=== PATIENT | female | born 1975 | race Two or more races ===

== ENCOUNTER 2024-07-22 17:35 | Inpatient (IN) | payer MEDICAID ==
[~2024-07-22] VITALS: Ht 152.4 cm; Wt 63.6 kg
[2024-07-22 18:42] LABS: COVID AG,FIA SOURCE NASAL SWAB
[2024-07-22 18:43] LABS: BASOPHILS % (AUTO) 0.3 % (0.0-2.0); EOSINOPHILS % (AUTO) 1.1 % (1.0-6.0); HEMATOCRIT 37.7 % (36-46); HEMOGLOBIN 12.5 g/dL (12.0-16.0); LYMPHOCYTES # (AUTO) 1.7 K/uL (1.0-4.8); LYMPHOCYTES % (AUTO) 34.3 % (22.0-44.0); MEAN CORPUSCULAR HEMOGLOBIN 32.3 pg (26.0-34.0); MEAN CORPUSCULAR HGB CONC 33.1 G/dL (31.0-37.0); MEAN CORPUSCULAR VOLUME 97 fL (80-100); MONOCYTES # (AUTO) 0.5 K/uL (0.1-1.0); MONOCYTES % (AUTO) 10.5 % (2.0-9.0); NEUTROPHILS # (AUTO) 2.6 K/uL (1.8-7.7); NEUTROPHILS % (AUTO) 53.8 % (40.0-70.0); PLATELET COUNT (AUTO) 391 K/uL (150-450); RED BLOOD CELL COUNT(AUTO) 3.87 MIL/uL (4.00-5.20); RED CELL DISTRIBUTION WIDTH 14.5 % (11.5-14.5); WHITE BLOOD COUNT (AUTO) 4.9 K/uL (4.5-11.0)
[2024-07-22 18:52] LABS: ANION GAP 12 mmol/L (8-16); CALCIUM, TOTAL 8.7 mg/dL (8.8-10.5); CARBON DIOXIDE 28 mmol/L (22-29); CHLORIDE 103 mmol/L (98-107); CREATININE 0.89 mg/dL (0.60-1.30); GLOMERULAR FILTR. RATE CALC > 60 mL/min (>60); GLUCOSE,RANDOM 91 mg/dL (70-110); POTASSIUM 3.6 mmol/L (3.5-5.1); SODIUM SERUM 143 mmol/L (136-145); UREA NITROGEN, BLOOD 15 mg/dL (7-18)
[2024-07-22 19:00] LABS: ALCOHOL, BLOOD (SERUM) < 3 mg/dL (0-10)
[2024-07-22 19:01] LABS: SARS-COV2 (COVID) ANTIGEN,FIA Negative (Negative)
[2024-07-22] MEDS ORDERED: MAGNESIUM HYDROXIDE SUSPENSION 30 ML UDCUP PO PRN (20:00)
[2024-07-22] MEDS ORDERED: LOPERAMIDE HCL 2 MG CAPSULE PO PRN (20:00)
[2024-07-22] MEDS ORDERED: ACETAMINOPHEN 325 MG TABLET PO PRN (20:00)
[2024-07-22] MEDS ORDERED: MAG HYDROX/ALUMINUM HYD/SIMETH ES 30 ML SUSPENSION UDCUP PO PRN (20:00)
[2024-07-22] MEDS ORDERED: HALOPERIDOL 5 MG TABLET PO PRN (20:00)
[2024-07-22 22:50] VITALS: O2SAT 99
[2024-07-23 00:35] VITALS: BP 126/74; PULSE 101; RESP 18; TEMP 96; O2SAT 96
[2024-07-23 08:20] VITALS: BP 126/88; PULSE 98; RESP 16; TEMP 98.1; O2SAT 98
[2024-07-23] MEDS ORDERED: ONDANSETRON 4 MG TABLET PO PRN (15:00)
[2024-07-23] MEDS ORDERED: ALBUTEROL SULFATE HFA 90 MCG/PUFF 8 GM INHALER IH PRN (15:00)
[2024-07-23] MEDS ORDERED: IBUPROFEN 400 MG TABLET PO PRN (15:00)
[2024-07-23] MEDS ORDERED: LOPERAMIDE HCL 2 MG CAPSULE PO PRN (15:00)
[2024-07-23] MEDS ORDERED: PETROLATUM,WHITE 28 GM JELLY TP PRN (15:00)
[2024-07-23] MEDS ORDERED: DOCUSATE SODIUM 100 MG CAPSULE PO PRN (15:00)
[2024-07-23] MEDS ORDERED: NICOTINE 14 MG/24 HOUR PATCH TD PRN (15:00)
[2024-07-23] MEDS ORDERED: MAG HYDROX/ALUMINUM HYD/SIMETH ES 30 ML SUSPENSION UDCUP PO PRN (15:00)
[2024-07-23] MEDS ORDERED: ACETAMINOPHEN 325 MG TABLET PO PRN (15:00)
[2024-07-23] MEDS ORDERED: CloNIDine HCL 0.1 MG TABLET PO PRN (15:00)
[2024-07-23] MEDS ORDERED: GuaiFENesin/D-METHORPHAN [SUGAR-FREE] 200-20MG/10 ML SYRUP UDCUP PO PRN (15:00)
[2024-07-23] MEDS: OLANZapine 7.5 MG TABLET PO SCH (20:40)
[2024-07-23 21:20] VITALS: BP 132/88; PULSE 79; RESP 16; TEMP 97.7; O2SAT 98
[2024-07-23] MEDS: TraZODone HCL 100 MG TABLET PO PRN (21:55)
[2024-07-24 08:13] VITALS: BP 120/81; PULSE 79; RESP 16; TEMP 98.1; O2SAT 100
[2024-07-24 09:31] LABS: THYROID STIMULATING HORMONE 0.7 uIU/mL (0.36-3.74)
[2024-07-24] MEDS: FluvoxaMINE MALEATE 50 MG TABLET PO SCH (10:12)
[2024-07-24 14:05] LABS: CHOL/HDL RATIO 3.3 (3.9-5.7)
[2024-07-24 14:32] LABS: HEMOGLOBIN A1C 5.7 % (3.8-5.6)
[2024-07-24 20:20] VITALS: BP 118/78; PULSE 75; RESP 16; TEMP 97.9; O2SAT 99
[2024-07-25 08:44] VITALS: BP 121/77; PULSE 65; RESP 18; TEMP 97.1; O2SAT 100
[2024-07-25 20:25] VITALS: BP 123/74; PULSE 123; RESP 16; TEMP 97.3; O2SAT 100
[2024-07-26 08:46] VITALS: BP 119/77; PULSE 72; RESP 19; TEMP 97.7; O2SAT 98
[2024-07-26 20:17] VITALS: BP 119/79; PULSE 71; RESP 18; TEMP 97.4; O2SAT 99
[2024-07-27 08:51] VITALS: BP 131/76; PULSE 69; RESP 16; TEMP 97.2; O2SAT 100
[2024-07-27 21:38] VITALS: BP 128/73; PULSE 70; RESP 17; TEMP 97.5; O2SAT 99
[2024-07-27] MEDS: MAGNESIUM HYDROXIDE SUSPENSION 30 ML UDCUP PO PRN (22:47)
[2024-07-28 08:39] VITALS: BP 110/72; PULSE 98; RESP 16; TEMP 97.3; O2SAT 97
[2024-07-28 20:40] VITALS: BP 119/60; PULSE 78; RESP 17; TEMP 98.1; O2SAT 100
[2024-07-29 08:00] VITALS: BP 116/67; PULSE 86; RESP 18; TEMP 96.8; O2SAT 100
[2024-07-29 21:38] VITALS: BP 119/75; PULSE 81; RESP 17; TEMP 97.4; O2SAT 99
[2024-07-30 09:08] VITALS: BP 107/61; PULSE 96; RESP 16; TEMP 97.7; O2SAT 100
[2024-07-30 20:58] VITALS: BP 123/81; PULSE 78; RESP 18; TEMP 96.8; O2SAT 98
[2024-07-31 08:45] VITALS: BP 108/63; PULSE 95; RESP 16; TEMP 98; O2SAT 99
[2024-07-31 09:39] LABS: APPEARANCE,URINE HAZY (CLEAR); BILIRUBIN,URINE NEGATIVE (NEGATIVE); COLOR,URINE YELLOW (YELLOW); GLUCOSE, URINE (UA) NEGATIVE (NEGATIVE); KETONES,URINE 40-60 mg/dL (NEGATIVE); LEUKOCYTE ESTERASE ,URINE SMALL (NEGATIVE); NITRATE,URINE NEGATIVE (NEGATIVE); OCCULT BLOOD,URINE NEGATIVE (NEGATIVE); PH,URINE 5.5 (5.0-8.0); PH,URINE DRUG SCREEN 5.5 (5.0-8.0); PROTEIN,URINE 30-70 mg/dL (NEGATIVE); UROBILINOGEN,URINE <=1.0 mg/dL (<=1.0)
[2024-07-31 09:44] LABS: ALCOHOL, URINE DRUG SCREEN NEGATIVE (NEGATIVE); AMPHET/METH SCREEN,URINE NEGATIVE (NEGATIVE); BARBITURATE SCREEN, URINE NEGATIVE (NEGATIVE); BENZODIAZEPINES SCREEN,URINE NEGATIVE (NEGATIVE); CANNABINOID SCREEN,URINE NEGATIVE (NEGATIVE); COCAINE SCREEN,URINE NEGATIVE (NEGATIVE); METHADONE SCREEN, URINE NEGATIVE (NEGATIVE); OPIATE SCREEN,URINE NEGATIVE (NEGATIVE); PHENCYCLIDINE SCREEN,URINE NEGATIVE (NEGATIVE)
[2024-07-31 11:10] LABS: BACTERIA,URINE Few /HPF (None Seen); RBC,URINE None Seen /HPF (0-2); SQUAMOUS EPITHELIAL CELL,UR Few /LPF (None Seen)
[2024-07-31 21:34] VITALS: BP 107/70; PULSE 97; RESP 16; TEMP 98.3; O2SAT 97
[2024-08-01 09:13] VITALS: BP 112/74; PULSE 84; RESP 17; TEMP 97.5; O2SAT 97
[2024-08-01 20:23] VITALS: BP 115/68; PULSE 86; RESP 16; TEMP 97.5; O2SAT 98
[2024-08-02 08:32] VITALS: BP 115/74; PULSE 89; RESP 16; TEMP 97.8; O2SAT 98
[2024-08-02 20:39] VITALS: BP 120/77; PULSE 88; RESP 18; TEMP 97.8; O2SAT 97
[2024-08-03 08:53] VITALS: BP 105/66; PULSE 105; RESP 18; TEMP 98.5; O2SAT 98
[2024-08-03 20:35] VITALS: BP 125/82; PULSE 92; RESP 18; TEMP 97.6; O2SAT 100
[2024-08-04] MEDS: ZOLPIDEM TARTRATE 10 MG TABLET PO PRN (01:03)
[2024-08-04 09:11] VITALS: BP 105/68; PULSE 79; RESP 19; TEMP 98; O2SAT 97
[2024-08-04] MEDS: MetFORMIN HCL 500 MG TABLET PO SCH (13:09)
[2024-08-04 20:00] VITALS: BP 115/80; PULSE 89; RESP 16; TEMP 97.8; O2SAT 98
[2024-08-05 08:37] VITALS: BP 115/77; PULSE 85; RESP 18; TEMP 97.1; O2SAT 97
[2024-08-05 20:43] VITALS: BP 108/72; PULSE 84; RESP 18; TEMP 97.3; O2SAT 96
[2024-08-06 08:37] VITALS: BP 108/71; PULSE 92; RESP 16; TEMP 97.9; O2SAT 97
[2024-08-06 21:04] VITALS: BP 101/68; PULSE 88; RESP 16; TEMP 97; O2SAT 97
[2024-08-07 08:22] VITALS: BP 107/67; PULSE 63; RESP 16; TEMP 96.8; O2SAT 95
[2024-08-07 22:18] VITALS: BP 94/63; PULSE 84; RESP 18; TEMP 97.5; O2SAT 98
[2024-08-08] MEDS: LORazepam 2 MG TABLET PO PRN (00:06)
[2024-08-08 08:39] VITALS: BP 116/65; PULSE 76; RESP 16; TEMP 97.9; O2SAT 98
[2024-08-08] MEDS: CLOBETASOL 0.05% 15 GM CREAM TP PRN (13:38)
[2024-08-08 20:05] VITALS: BP 108/67; PULSE 103; RESP 17; TEMP 97.5
[2024-08-09 08:39] VITALS: BP 109/65; PULSE 100; RESP 16; TEMP 97.6; O2SAT 97
[2024-08-09 20:12] VITALS: BP 110/73; PULSE 75; RESP 18; TEMP 97.5; O2SAT 98
[2024-08-10] MEDS ORDERED: OLAN7.5T22 PO ×2 (18:15→19:41)
[2024-08-10] MEDS ORDERED: FLUV50 PO ×2 (18:15→19:41)
[2024-08-10] MEDS ORDERED: METF-1211 PO ×2 (18:15→19:41)
[2024-08-10 21:09] VITALS: BP 109/72; PULSE 73; RESP 17; TEMP 97.8; O2SAT 97
[2024-08-11 08:43] VITALS: BP 100/62; PULSE 97; RESP 16; TEMP 98.2; O2SAT 98
[2024-08-11 21:15] VITALS: BP 121/70; PULSE 78; RESP 14; TEMP 91.4; TEMP 97.3; O2SAT 95
[2024-08-12 08:25] VITALS: BP 111/74; PULSE 100; RESP 16; TEMP 97.9; O2SAT 97
[2024-08-12 20:13] VITALS: BP 112/73; PULSE 79; RESP 16; TEMP 96.6; O2SAT 96
[2024-08-13 08:17] VITALS: BP 118/69; PULSE 82; RESP 16; TEMP 98; O2SAT 96
[2024-08-13 20:03] VITALS: BP 126/69; PULSE 90; RESP 17; TEMP 97.8
[2024-08-14 08:15] VITALS: BP 109/75; PULSE 98; RESP 16; TEMP 97; O2SAT 97
== END 2024-08-14 12:23 | disposition home or self-care (01) | DRG 750 ==
LOC: EMS 17:35 → B2S 23:17 → EMS 23:17 → B2S 23:31 → B3A 08-04 23:45
PROVIDERS: ADMIT Psychiatry & Neurology Psychiatry; ATTEND Psychiatry & Neurology Psychiatry
PROC: GZHZZZZ Group Psychotherapy (ICD-10-PCS; principal; 2024-07-23)
DX: F25.1 Schizoaffective disorder, depressive type (principal); F42.9 Obsessive-compulsive disorder, unspecified; R03.0 Elevated blood-pressure reading, without diagnosis of hypertension; Z20.822 Contact with and (suspected) exposure to COVID-19; Z79.899 Other long term (current) drug therapy; G47.00 Insomnia, unspecified
CPT/HCPCS: 80048; 80061; 80307; 81001; 82140; 83036; 84443; 85025; 99285; G0480